=== PATIENT | female | born 1960 | race Caucasian/White ===

== ENCOUNTER 2018-11-19 03:41 | Observation (INO) | payer OTHER ==
[2018-11-19] MEDS ORDERED: VITAMIN E 400 UNITS CAP PO (05:00)
[2018-11-19] MEDS ORDERED: clonAZEPAM 0.5 MG TAB PO (05:00)
[2018-11-19] MEDS ORDERED: NITROGLYCERIN (SL) 0.4 MG TAB SL (06:00)
[2018-11-19] MEDS ORDERED: PANTOPRAZOLE (EC) 40 MG TAB PO (06:00)
[2018-11-19] MEDS ORDERED: NACL 0.9% 3 ML SYG IV (06:00)
[2018-11-19] MEDS ORDERED: ALBUTEROL/IPRATROPIUM (NEB) 3 ML AMP HHN (06:00)
[2018-11-19] MEDS ORDERED: ONDANSETRON 4 MG INJ IV (06:00)
[2018-11-19] MEDS: [UNRECOGNIZED DRUG - OTHER] XX (07:30)
[2018-11-19] MEDS: [UNRECOGNIZED DRUG - REMARK] XX (07:30)
[2018-11-19 08:07] LABS: HEMATOCRIT 36.7 % (37.0-47.0); HEMOGLOBIN 12.1 g/dl (12.0-16.0); MEAN CORPUSCULAR HEMOGLOBIN 32.4 pg (29.0-33.0); MEAN CORPUSCULAR VOLUME 98.4 fl (82.0-101.0); MEAN PLATELET VOLUME 11.5 fl (7.4-10.4); PLATELET COUNT 129 10^3/UL (140-415); RED BLOOD COUNT 3.73 10^6/ul (4.20-5.40); RED CELL DISTRIBUTION WIDTH 11.9 % (11.5-14.5)
[2018-11-19 08:07] LABS: WHITE BLOOD COUNT 4.1 10^3/ul (4.8-10.8)
[2018-11-19 08:16] LABS: ADD MAN DIFF? YES; POSITIVE DIFF @See below
[2018-11-19 08:29] LABS: CREATINE KINASE 30 IU/L (23-200)
[2018-11-19 08:31] LABS: ALANINE AMINOTRANSFERASE 18 IU/L (13-69); ALBUMIN 3.7 g/dl (3.3-4.9); ALBUMIN/GLOBULIN RATIO 1.94; ALKALINE PHOSPHATASE 33 IU/L (42-121); ANION GAP 5 (5-13); ASPARTATE AMINO TRANSFERASE 14 IU/L (15-46); BILIRUBIN,INDIRECT 0.1 mg/dl (0-1.1); BILIRUBIN,TOTAL 0.1 mg/dl (0.2-1.3); BLOOD UREA NITROGEN 11 mg/dl (7-20); CARBON DIOXIDE 31 mmol/L (21-31); CHLORIDE 107 mmol/L (97-110); CHOLESTEROL 119 mg/dl (100-200); CREATININE 0.67 mg/dl (0.44-1.00); Estimated GFR > 60 mL/min (>60); GLUCOSE 91 mg/dl (70-220); HDL CHOLESTEROL 58 mg/dl (37-92); LDL CHOLESTEROL,CALCULATED 47 mg/dl; POTASSIUM 3.9 mmol/L (3.5-5.1); SODIUM 143 mmol/L (135-144); TOTAL PROTEIN 5.6 g/dl (6.1-8.1); TRIGLYCERIDES 69 mg/dl (0-149)
[2018-11-19 08:42] LABS: CK-MB 0.61 ng/ml (0.0-2.4); TROPONIN-I < 0.012 ng/ml (0.000-0.120)
[2018-11-19] MEDS ORDERED: GABAPENTIN 300 MG CAP PO (09:00)
[2018-11-19] MEDS ORDERED: METOPROLOL 50 MG TAB PO (09:00)
[2018-11-19] MEDS ORDERED: FERROUS SULFATE (EC) 325 MG TAB PO (09:00)
[2018-11-19] MEDS ORDERED: DULOXETINE 30 MG CAP DR PO (09:00)
[2018-11-19] MEDS ORDERED: LOSARTAN 50 MG TAB PO (09:00)
[2018-11-19] MEDS ORDERED: ASPIRIN 81 MG TAB PO (09:00)
[2018-11-19] MEDS ORDERED: FOLIC ACID 1 MG TAB PO (09:00)
[2018-11-19] MEDS ORDERED: predniSONE 1 MG TAB PO (09:00)
[2018-11-19] MEDS ORDERED: HYDROXYCHLOROQUINE 200 MG TAB PO (09:00)
[2018-11-19] MEDS: HYDROXYCHLOROQUINE 200 MG TAB PO ×2 (09:57→20:47)
[2018-11-19] MEDS: VITAMIN E 400 UNITS CAP PO (09:57)
[2018-11-19] MEDS: DULOXETINE 30 MG CAP DR PO (09:57)
[2018-11-19] MEDS: FERROUS SULFATE (EC) 325 MG TAB PO (09:58)
[2018-11-19] MEDS: LOSARTAN 50 MG TAB PO (09:59)
[2018-11-19] MEDS: ASPIRIN (EC) 81 MG TAB PO (09:59)
[2018-11-19 10:00] LABS: HEMOGLOBIN A1C 5.1 % (0-5.9)
[2018-11-19] MEDS: SULFADIAZINE 500 MG TAB PO (10:00)
[2018-11-19] MEDS: predniSONE 1 MG TAB PO (10:00)
[2018-11-19] MEDS: FOLIC ACID 1 MG TAB PO (10:01)
[2018-11-19] MEDS: GABAPENTIN 300 MG CAP PO ×2 (10:01→20:51)
[2018-11-19] MEDS: METOPROLOL 50 MG TAB PO (10:01)
[2018-11-19] MEDS: PANTOPRAZOLE (EC) 40 MG TAB PO (10:01)
[2018-11-19 12:25] LABS: CREATINE KINASE 36 IU/L (23-200)
[2018-11-19 12:33] LABS: CK INDEX 1.4; CK-MB 0.51 ng/ml (0.0-2.4); TROPONIN-I < 0.012 ng/ml (0.000-0.120)
[2018-11-19 12:40] LABS: BAND NEUTROPHILS #M 0.2 10^3/ul (0.0-0.6); BAND NEUTROPHILS % (M) 5 % (0-4); BASOPHIL #M 0.1 10^3/ul (0.0-0.0); BASOPHILS % (M) 3 % (0-2); EOSINOPHILS % (M) 3 % (0-7); GIANT THROMBO% (M) 3 % (0-0); LYMPHOCYTES #M 1.7 10^3/ul (0.8-2.9); LYMPHOCYTES % (M) 42 % (15-51); METAMYELOCYTES %M 1 % (0-0); MONOCYTE #M 0.4 10^3/ul (0.3-0.9); MONOCYTES % (M) 12 % (0-11); PLASMAC%(M) 1 % (0); PLATELET ESTIMATE NORMAL; REACTIVE LYMPHOCYTES% (M) 1 % (0-0); SEG NEUT #M 1.3 10^3/ul (1.6-7.5); SEGMENTED NEUTROPHILS (M) % 32 % (39-77); SMUDGE%M 48 % (0-0)
[2018-11-19] MEDS: LATUDA 120 MG TABLET PO (14:58)
[2018-11-19] MEDS: SOD CHLORIDE 0.9% 100 ML (16:50)
[2018-11-19] MEDS: IOHEXOL 100 ML (16:50)
[2018-11-19 17:40] LABS: TROPONIN-I < 0.012 ng/ml (0.000-0.120)
[2018-11-19] MEDS: hydrALAzine 20 MG INJ IV (20:16)
[2018-11-19] MEDS: MISOPROSTOL 100 MCG TAB PO (20:47)
[2018-11-19] MEDS: SUCRALFATE 1 GM TAB PO (20:47)
[2018-11-19] MEDS: ATORVASTATIN 20 MG TAB PO (20:47)
[2018-11-19] MEDS: traZODone 100 MG TAB PO (20:47)
[2018-11-19] MEDS: clonAZEPAM 0.5 MG TAB PO (20:48)
[2018-11-19] MEDS ORDERED: MISOPROSTOL 100 MCG TAB PO (21:00)
[2018-11-19] MEDS ORDERED: ATORVASTATIN 20 MG TAB PO (21:00)
[2018-11-19] MEDS ORDERED: SULFADIAZINE 500 MG TAB PO (21:00)
[2018-11-19] MEDS ORDERED: SUCRALFATE 1 GM TAB PO (21:00)
[2018-11-19] MEDS ORDERED: traZODone 100 MG TAB PO (21:00)
[2018-11-19] MEDS ORDERED: SULINDAC 200 MG TAB PO ×2 (21:00)
[2018-11-19] MEDS: SULINDAC 200 MG TABLET PO (21:00)
[2018-11-20 06:18] LABS: ADD MAN DIFF? NO
[2018-11-20 06:35] LABS: WHITE BLOOD COUNT 4.2 10^3/ul (4.8-10.8)
[2018-11-20 06:35] LABS: EOSINOPHILS # 0.1 10^3/ul (0.0-0.5); EOSINOPHILS % 1.9 % (0.0-7.0); HEMATOCRIT 40.7 % (37.0-47.0); HEMOGLOBIN 13.7 g/dl (12.0-16.0); LYMPHOCYTES # 1.3 10^3/ul (0.8-2.9); LYMPHOCYTES % 31.5 % (15.0-51.0); MEAN CORPUSCULAR HEMOGLOBIN 32.1 pg (29.0-33.0); MEAN CORPUSCULAR HGB CONC 33.7 g/dl (32.0-37.0); MEAN CORPUSCULAR VOLUME 95.3 fl (82.0-101.0); MEAN PLATELET VOLUME 11.4 fl (7.4-10.4); MONOCYTE # 0.8 10^3/ul (0.3-0.9); MONOCYTES % 18.4 % (0.0-11.0); PLATELET COUNT 128 10^3/UL (140-415); RED BLOOD COUNT 4.27 10^6/ul (4.20-5.40); RED CELL DISTRIBUTION WIDTH 11.9 % (11.5-14.5)
[2018-11-20 07:05] LABS: ANION GAP 9 (5-13); BLOOD UREA NITROGEN 9 mg/dl (7-20); CARBON DIOXIDE 29 mmol/L (21-31); CHLORIDE 105 mmol/L (97-110); CREATININE 0.78 mg/dl (0.44-1.00); Estimated GFR > 60 mL/min (>60); GLUCOSE 89 mg/dl (70-220); MAGNESIUM 1.9 mg/dl (1.7-2.5); PHOSPHORUS 4.8 mg/dl (2.5-4.9); POTASSIUM 3.5 mmol/L (3.5-5.1); SODIUM 143 mmol/L (135-144)
[2018-11-20] MEDS: ACETAMINOPHEN 325 MG TAB PO (07:42)
[2018-11-20] MEDS: SULFADIAZINE 500 MG TAB PO (09:47)
[2018-11-20] MEDS: DULOXETINE 30 MG CAP DR PO (09:47)
[2018-11-20] MEDS: LATUDA 120 MG TABLET PO (09:47)
[2018-11-20] MEDS: HYDROXYCHLOROQUINE 200 MG TAB PO (09:48)
[2018-11-20] MEDS: PANTOPRAZOLE (EC) 40 MG TAB PO (09:48)
[2018-11-20] MEDS: ASPIRIN (EC) 81 MG TAB PO (09:48)
[2018-11-20] MEDS: FERROUS SULFATE (EC) 325 MG TAB PO (09:48)
[2018-11-20] MEDS: METOPROLOL 50 MG TAB PO (09:48)
[2018-11-20] MEDS: FOLIC ACID 1 MG TAB PO (09:48)
[2018-11-20] MEDS: VITAMIN E 400 UNITS CAP PO (09:48)
[2018-11-20] MEDS: GABAPENTIN 300 MG CAP PO (09:48)
[2018-11-20] MEDS: predniSONE 1 MG TAB PO (09:49)
[2018-11-20] MEDS: LOSARTAN 50 MG TAB PO (09:49)
[2018-11-20] MEDS: IBUPROFEN 400 MG TAB PO (11:28)
== END 2018-11-20 15:15 | disposition home or self-care (01) ==
LOC: 6WM 03:41
DX: R07.9 Chest pain, unspecified (principal); I10 Essential (primary) hypertension; E78.5 Hyperlipidemia, unspecified; M79.7 Fibromyalgia; M06.9 Rheumatoid arthritis, unspecified; F99 Mental disorder, not otherwise specified; R00.1 Bradycardia, unspecified
CPT/HCPCS: 71275; 80048; 80053; 80061; 82550; 82553; 83036; 83735; 84100; 84443; 84484; 84703; 85025; 93306; 99217; G0378